=== PATIENT | male | born 1990 | race African-American/Black ===

== ENCOUNTER 2017-05-07 14:56 | Emergency (ER) | payer OTHER, SELFPAY ==
[~2017-05-07] VITALS: Ht 170.2 cm; Wt 65.6 kg
[~2017-05-07 14:56] MED LIST: ASPI325T24 PO; PERC5TAB12 PO
[2017-05-07 14:59] VITALS: BP 126/71
[2017-05-07] MEDS ORDERED: BACTRIM 160MG/800MG DS TAB PO ONE (15:30)
[2017-05-07] MEDS ORDERED: BACT800T5 PO (15:32)
== END 2017-05-07 16:35 | disposition home or self-care (01) ==
LOC: M ED 14:56
DX: L02.415 Cutaneous abscess of right lower limb (principal); L03.115 Cellulitis of right lower limb; Z91.013 Allergy to seafood

== ENCOUNTER 2017-05-10 21:46 | Emergency (ER) | payer OTHER ==
[~2017-05-10] VITALS: Ht 170.2 cm; Wt 66.0 kg
[~2017-05-10 21:46] MED LIST changes: +BACT800T5 PO
--- NOTE | 2017-05-10 23:20 | REPUSA ---
Clinical history: redness, swelling. Findings: Real-time ultrasound imaging of the right thigh was performed. Diffuse soft tissue edema is noted. There is a complex fluid collection at this site of concern, measuring 1.9 x 1.0 x 2.8 cm. Pe ripheral vascular is seen within this lesion, but no intravascular in the is identified. No other sof t tissue lesions are noted. Impression: 1. Complex loculated fluid collection at this site of concern with surrounding inflammation, suspicio us for a abscess. Clinical correlation is recommended.
[2017-05-11] MEDS ORDERED: LIDOCAINE 1% MDV 20ML VIAL SC ONE
[2017-05-11 00:30] VITALS: BP 125/75
== END 2017-05-11 00:32 | disposition home or self-care (01) ==
LOC: EEVIPCON 21:46 → M ED 21:46
DX: L02.411 Cutaneous abscess of right axilla (principal); F17.200 Nicotine dependence, unspecified, uncomplicated

== ENCOUNTER → 2017-06-25 | Outpatient (CLI) | payer MEDICAID | LOC: M OUTALCOH 12:27 | PROVIDERS: ATTEND Psychiatry & Neurology Psychiatry | DX: F12.20 Cannabis dependence, uncomplicated (principal) ==

== ENCOUNTER 2017-09-17 08:45 | Outpatient (RCR) | payer MEDICAID | END 2017-09-18 | LOC: M OUTALCOH 08:45 | PROVIDERS: ATTEND Psychiatry & Neurology Psychiatry | DX: F12.20 Cannabis dependence, uncomplicated (principal); F17.200 Nicotine dependence, unspecified, uncomplicated ==

== ENCOUNTER 2017-09-19 10:31 | Outpatient (RCR) | payer MEDICAID | END 2017-10-19 | LOC: M OUTALCOH 09-22 08:45 | DX: F12.20 Cannabis dependence, uncomplicated (principal); F17.200 Nicotine dependence, unspecified, uncomplicated ==